=== PATIENT | male | born 1995 | race Caucasian/White ===

== ENCOUNTER 2021-06-29 22:45 | Emergency (ER) | payer MEDICAID ==
[~2021-06-29] VITALS: Ht 172.7 cm; Wt 69.0 kg
[2021-06-29 22:49] VITALS: BP 129/76
[2021-06-30] MEDS ORDERED: FAMOTIDINE 20MG TABLET PO ONE (01:15)
[2021-06-30] MEDS ORDERED: ONDANSETRON 4MG ODT PO ONE (01:15)
[2021-06-30] MEDS ORDERED: MAGNESIUM/ALUMINUM HYDROXIDE/SIMETHICONE 30ML UDC PO ONE (01:15)
[2021-06-30 01:31] LABS: BASOPHILS % 0.5 % (0.0-2.0); EOSINOPHILS % 1.7 % (0.0-5.0); HEMATOCRIT. 41.7 % (42.0-52.0); HEMOGLOBIN. 14.6 g/dL (14.0-18.0); LYMPHOCYTES % 16.7 % (20.0-50.0); MEAN CORPUSCULAR HEMOGLOBIN 30.9 pg (28.0-32.0); MEAN CORPUSCULAR VOLUME 88.7 fL (80.0-94.0); MEAN PLATELET VOLUME 8.8 fl (7.4-10.4); MONOCYTES % 8.5 % (2.0-8.0); NEUTROPHILS % 72.6 % (40.0-76.0); PLATELET 201 x1000/uL (130-400); RED BLOOD CELL COUNT 4.71 mill/uL (4.7-6.1); RED CELL DISTRIBUTION WIDTH 12.7 % (11.6-14.6)
[2021-06-30 01:40] LABS: CHLORIDE 103 mEq/L (98-107)
[2021-06-30] MEDS ORDERED: FAMO-135 MT (02:34)
[2021-06-30] MEDS ORDERED: MAG-55 MT (02:34)
[2021-06-30] MEDS ORDERED: POTASSIUM CHLORIDE 20MEQ TABLET SR PO ONE (02:45)
== END 2021-06-30 03:04 | disposition home or self-care (01) ==
LOC: ER 22:45
DX: K29.70 Gastritis, unspecified, without bleeding (principal); F10.10 Alcohol abuse, uncomplicated; J45.909 Unspecified asthma, uncomplicated; Y90.0 Blood alcohol level of less than 20 mg/100 ml; Z98.890 Other specified postprocedural states
CPT/HCPCS: 36415; 80053; 80320; 83690; 85025; 99284; Q0162; G0480

== ENCOUNTER 2022-03-17 03:42 | Emergency (ER) | payer MEDICAID ==
[~2022-03-17] VITALS: Ht 170.2 cm; Wt 82.0 kg
[~2022-03-17 03:42] MED LIST: FAMO-135 MT; MAG-55 MT
[2022-03-17] MEDS ORDERED: SODIUM CHLORIDE 0.9% 1,000 ML IV ONE (04:00)
[2022-03-17 04:35] LABS: BASOPHILS % 0.7 % (0.0-2.0); EOSINOPHILS % 0.8 % (0.0-5.0); HEMATOCRIT. 43.9 % (42.0-52.0); HEMOGLOBIN. 14.8 g/dL (14.0-18.0); LYMPHOCYTES % 33.1 % (20.0-50.0); MEAN CORPUSCULAR HEMOGLOBIN 30.4 pg (28.0-32.0); MEAN CORPUSCULAR VOLUME 90.3 fL (80.0-94.0); MEAN PLATELET VOLUME 8.8 fl (7.4-10.4); MONOCYTES % 6.9 % (2.0-8.0); NEUTROPHILS % 58.5 % (40.0-76.0); PLATELET 217 x1000/uL (130-400); RED BLOOD CELL COUNT 4.86 mill/uL (4.7-6.1); RED CELL DISTRIBUTION WIDTH 12.9 % (11.6-14.6)
[2022-03-17 04:43] LABS: CHLORIDE 110 mEq/L (98-107)
[2022-03-17 04:46] LABS: ETHANOL BLOOD 231 mg/dL
[2022-03-17 06:30] VITALS: BP 113/51
== END 2022-03-17 09:03 | disposition home or self-care (01) ==
LOC: ER 03:42
DX: F10.129 Alcohol abuse with intoxication, unspecified (principal); J45.909 Unspecified asthma, uncomplicated; R94.31 Abnormal electrocardiogram [ECG] [EKG]; Y90.7 Blood alcohol level of 200-239 mg/100 ml
CPT/HCPCS: 36415; 70450; 71045; 80053; 80307; 80320; 80329; 85025; 93005; 99285; J7030; G0480

== ENCOUNTER 2022-08-27 21:01 | Emergency (ER) | payer MEDICAID, OTHER ==
[~2022-08-27] VITALS: Ht 170.2 cm; Wt 82.0 kg
[2022-08-27] MEDS ORDERED: OLANZAPINE 10 MG/VIAL IM ONE (21:30)
[2022-08-27 22:09] LABS: BASOPHILS % 0.6 % (0.0-2.0); EOSINOPHILS % 0.6 % (0.0-5.0); HEMATOCRIT. 41.4 % (42.0-52.0); HEMOGLOBIN. 14.2 g/dL (14.0-18.0); LYMPHOCYTES % 16.4 % (20.0-50.0); MEAN CORPUSCULAR VOLUME 90.5 fL (80.0-94.0); MEAN PLATELET VOLUME 8.6 fl (7.4-10.4); MONOCYTES % 7.1 % (2.0-8.0); NEUTROPHILS % 75.3 % (40.0-76.0); PLATELET 211 x1000/uL (130-400); RED BLOOD CELL COUNT 4.57 mill/uL (4.7-6.1); RED CELL DISTRIBUTION WIDTH 13.9 % (11.6-14.6)
[2022-08-27 22:16] LABS: CHLORIDE 108 mEq/L (98-107)
[2022-08-27 22:32] LABS: ETHANOL BLOOD 215 mg/dL
[2022-08-27 22:36] LABS: *AMPHETAMINES SCREEN URINE NEGATIVE (NEGATIVE); *BARBITURATES SCREEN URINE NEGATIVE (NEGATIVE); *BENZODIAZEPINES SCREEN URINE NEGATIVE (NEGATIVE); *COCAINE SCREEN URINE NEGATIVE (NEGATIVE); CANNABINOID URINE SCREEN PRESUMTIVE POSITIVE (NEGATIVE); METHADONE URINE SCREEN NEGATIVE (NEGATIVE); OPIATES URINE SCREEN NEGATIVE (NEGATIVE); PHENCYCLIDINE URINE SCREEN NEGATIVE (NEGATIVE)
[2022-08-27 23:45] VITALS: BP 122/71
== END 2022-08-28 00:05 ==
LOC: ER 21:01
DX: R45.6 Violent behavior (principal); R45.1 Restlessness and agitation; J45.909 Unspecified asthma, uncomplicated
CPT/HCPCS: 36415; 80053; 80305; 80307; 80320; 80329; 85025; 93005; 96372; 99284; J3490; G0480